=== PATIENT | male | born 1975 | race Caucasian/White ===

== ENCOUNTER 2017-08-14 20:08 | Emergency (ER) | payer MEDICAID, OTHER ==
[~2017-08-14] VITALS: Ht 177.8 cm; Wt 80.0 kg
[2017-08-14] MEDS ORDERED: acetaminophen 325mg tablet PO ONE (20:25)
[2017-08-14] MEDS ORDERED: normal saline 1000ML IV soln IV ONE (20:30)
[2017-08-14 21:00] LABS: PARTIAL THROMBOPLASTIN TIME 27 SECONDS (22-32); PROTHROMBIN TIME 10.8 SECONDS (9.0-12.0)
[2017-08-14 21:05] LABS: ALANINE AMINOTRANSFERASE 151 U/L (12-78); ALBUMIN 3.4 G/DL (3.4-5.0); ALKALINE PHOSPHATASE 117 IU/L (46-116); ANION GAP 7 (8-16); ASPARTATE AMINO TRANSFERASE 102 U/L (10-37); BILIRUBIN,TOTAL 0.5 MG/DL (0.1-1.0); BLOOD UREA NITROGEN 14 MG/DL (7-18); BUN/CREATININE RATIO 12.3 (5.4-32.0); CALCIUM 8.9 MG/DL (8.5-10.1); CHLORIDE 93 MMOL/L (99-107); CREATININE 1.14 MG/DL (0.60-1.10); GLUCOSE 115 MG/DL (70-104); MAGNESIUM 1.4 MG/DL (1.5-2.4); POTASSIUM 3.9 MMOL/L (3.5-5.1); SODIUM 128 MMOL/L (135-145); TOTAL CARBON DIOXIDE 27.9 MMOL/L (24-32); TOTAL PROTEIN 6.8 G/DL (6.4-8.2); eGFR 70 ML/MIN
[2017-08-14 21:09] LABS: BASOPHILS % (AUTO) 0.2 % (0-1); EOSINOPHILS % (AUTO) 0 % (0-6); HEMATOCRIT 48.3 % (42.0-52.0); HEMOGLOBIN 16.4 g/dl (14.0-17.9); LYMPHOCYTES # (AUTO) 1.3 X10'3 (1.1-4.8); LYMPHOCYTES % (AUTO) 18.6 % (21-51); MEAN CORPUSCULAR HEMOGLOBIN 29.2 PG (27.0-31.0); MEAN CORPUSCULAR HGB CONC 33.9 % (33.0-36.5); MEAN PLATELET VOLUME 8.4 FL (7.4-10.4); MONOCYTES # (AUTO) 0.7 X10'3 (0-0.9); MONOCYTES % (AUTO) 10.3 % (2-12); NEUTROPHILS # (AUTO) 4.8 X10'3 (1.8-7.7); NEUTROPHILS % (AUTO) 70.9 % (42-75); PLATELET COUNT 138 X10'3 (140-440); RED BLOOD COUNT 5.61 X10'6 (4.70-6.10); RED CELL DISTRIBUTION WIDTH 13.1 % (11.5-14.5); WHITE BLOOD COUNT 6.8 X10'3 (4.5-11.0)
[2017-08-14 21:26] LABS: CLARITY,URINE CLEAR (Clear); COLOR,URINE YELLOW (Yellow); GLUCOSE, URINE NEGATIVE (Neg); KETONES,URINE NEGATIVE (Neg); LEUKOCYTE ESTERASE ,URINE NEGATIVE (Neg); NITRITES, URINE NEGATIVE (Neg); OCCULT BLOOD,URINE NEGATIVE (Neg); PH,URINE 8.5 (4.8-8.0); PROTEIN,URINE 100 mg/dl (Neg)
[2017-08-14 21:47] LABS: UA COLLECTION TYPE URINAL
[2017-08-14 21:48] LABS: BACTERIA,URINE NONE SEEN /HPF (Neg); RBC,URINE NONE SEEN /HPF (0-2); SQUAMOUS EPITHELIAL CELL,UR NONE SEEN /LPF (FEW); WBC,URINE NONE SEEN /HPF (0-4)
[2017-08-14] MEDS ORDERED: ONDA8TAB9 PO (22:03)
[2017-08-14 22:19] VITALS: BP 123/68
== END 2017-08-14 22:22 | disposition home or self-care (01) ==
LOC: ER 20:09
DX: E87.1 Hypo-osmolality and hyponatremia (principal); E86.0 Dehydration; N28.9 Disorder of kidney and ureter, unspecified; R74.0 Nonspecific elevation of levels of transaminase and lactic acid dehydrogenase [LDH]; B34.9 Viral infection, unspecified; F17.200 Nicotine dependence, unspecified, uncomplicated; Z98.890 Other specified postprocedural states; Z79.899 Other long term (current) drug therapy
CPT/HCPCS: 36415; 71045; 80053; 81001; 83605; 83735; 84145; 85025; 85610; 85730; 87040; 93005; 96360; 99291; J7030

== ENCOUNTER 2018-04-22 17:24 | Emergency (ER) | payer MEDICAID, OTHER ==
[~2018-04-22] VITALS: Ht 177.8 cm; Wt 75.0 kg
[~2018-04-22 17:24] MED LIST: ONDA8TAB9 PO
[2018-04-22 17:36] VITALS: BP 136/93
--- NOTE | 2018-04-22 18:42 | NUR ---
ultrasound at bedside.
[2018-04-22 19:16] LABS: CLARITY,URINE CLEAR (Clear); COLOR,URINE YELLOW (Yellow); GLUCOSE, URINE NEGATIVE (Neg); KETONES,URINE NEGATIVE (Neg); LEUKOCYTE ESTERASE ,URINE NEGATIVE (Neg); NITRITES, URINE NEGATIVE (Neg); OCCULT BLOOD,URINE NEGATIVE (Neg); PROTEIN,URINE NEGATIVE (Neg); UROBILINOGEN,URINE 0.2 E.U/dL (0.2-1.0)
[2018-04-22 19:20] LABS: UA COLLECTION TYPE CLN CATCH MIDSTREAM
[2018-04-22] MEDS ORDERED: acetaminophen 325mg tablet PO ONE (19:20)
[2018-04-22] MEDS ORDERED: DOXYCYCLINE 100MG CAPSULE PO STA (19:23)
[2018-04-22] MEDS ORDERED: CefTRIAXone 250MG IM Kit w/LIDOcaine IM ONE (19:25)
[2018-04-22] MEDS ORDERED: DOXY100C43 PO (19:27)
== END 2018-04-22 19:55 | disposition home or self-care (01) ==
LOC: ER 17:24
DX: N50.812 Left testicular pain (principal); R10.32 Left lower quadrant pain; N53.12 Painful ejaculation; R39.198 Other difficulties with micturition; Z98.890 Other specified postprocedural states
CPT/HCPCS: 36415; 76870; 81003; 87491; 87591; 99284

== ENCOUNTER 2018-06-15 18:25 | Emergency (ER) | payer OTHER ==
[~2018-06-15] VITALS: Ht 177.8 cm; Wt 75.0 kg
[2018-06-15 18:39] VITALS: BP 127/89
[2018-06-15] MEDS ORDERED: HYDROcodone/acetaminophen 10/325mg tab PO ONE (20:35)
[2018-06-15] MEDS ORDERED: HYDR-4353 PO (21:32)
== END 2018-06-15 21:57 | disposition home or self-care (01) ==
LOC: ER 18:26
DX: S42.031A Displaced fracture of lateral end of right clavicle, initial encounter for closed fracture (principal); S40.211A Abrasion of right shoulder, initial encounter; S50.311A Abrasion of right elbow, initial encounter; M25.532 Pain in left wrist; Z79.899 Other long term (current) drug therapy; V29.9XXA Motorcycle rider (driver) (passenger) injured in unspecified traffic accident, initial encounter; Y93.I9 Activity, other involving external motion; Y92.410 Unspecified street and highway as the place of occurrence of the external cause; Y99.8 Other external cause status
CPT/HCPCS: 29125; 73000; 73120; 99283

== ENCOUNTER 2018-06-19 15:06 | Emergency (ER) | payer OTHER ==
[~2018-06-19] VITALS: Ht 177.8 cm; Wt 79.0 kg
[~2018-06-19 15:06] MED LIST changes: +HYDR-4353 PO
[2018-06-19 15:09] VITALS: BP 143/66
[2018-06-19] MEDS ORDERED: HYDR-4353 PO (16:37)
[2018-06-19] MEDS ORDERED: HYDROcodone/acetaminophen 10/325mg tab PO ONE (17:00)
== END 2018-06-19 17:03 | disposition home or self-care (01) ==
LOC: ER 15:07
DX: S42.031D Displaced fracture of lateral end of right clavicle, subsequent encounter for fracture with routine healing (principal); S40.211D Abrasion of right shoulder, subsequent encounter; S50.311D Abrasion of right elbow, subsequent encounter; Z98.890 Other specified postprocedural states; Z79.899 Other long term (current) drug therapy; V29.9XXD Motorcycle rider (driver) (passenger) injured in unspecified traffic accident, subsequent encounter
CPT/HCPCS: 73070; 99283

== ENCOUNTER → 2018-07-26 | Outpatient (CLI) | payer MEDICAID ==
[~2018-07-26] MED LIST changes: -HYDR-4353 PO
[2018-07-26 12:45] VITALS: BP 138/89
[2018-07-26 12:46] VITALS: BP 138/89
== END | disposition home or self-care (01) ==
LOC: ORTHO 11:49
PROVIDERS: ATTEND Orthopaedic Surgery
DX: S42.021D Displaced fracture of shaft of right clavicle, subsequent encounter for fracture with routine healing (principal); F17.200 Nicotine dependence, unspecified, uncomplicated; X58.XXXD Exposure to other specified factors, subsequent encounter
CPT/HCPCS: 73000; 99213

== ENCOUNTER 2018-08-24 11:42 | Emergency (ER) | payer MEDICAID ==
[~2018-08-24] VITALS: Ht 177.8 cm; Wt 71.0 kg
[2018-08-24 11:50] VITALS: BP 126/77
--- NOTE | 2018-08-24 12:00 | NUR ---
called poison control spoke to hu .patient needs to be monitored for coughing spells,nausea,vomiting and respiratory symptoms.patient sating 95-98% ra with some dizziness.CXR recommended if + respiratory symptoms due to risks of aspiration pna.
--- NOTE | 2018-08-24 13:21 | NUR ---
PT NIL. PT CALLED AND PHONE # HAS RESTRICTIONS AND CAN NOT ANSWER INCOMING CALLS. Addendum: 08/24/18 at 1327 by [facility] ER CALLED, PT HAS NOT CHECKED INTO ER
== END 2018-08-24 14:10 | disposition left against medical advice (07) ==
LOC: ER 11:42
DX: T65.6X1A Toxic effect of paints and dyes, not elsewhere classified, accidental (unintentional), initial encounter (principal); R42 Dizziness and giddiness; Z53.21 Procedure and treatment not carried out due to patient leaving prior to being seen by health care provider; Y92.89 Other specified places as the place of occurrence of the external cause

== ENCOUNTER 2018-11-27 02:17 | Emergency (ER) | payer MEDICAID ==
[~2018-11-27] VITALS: Ht 177.8 cm; Wt 60.9 kg
[2018-11-27 02:22] VITALS: BP 129/89
[2018-11-27 03:21] LABS: CLARITY,URINE CLEAR (Clear); COLOR,URINE YELLOW (Yellow); GLUCOSE, URINE NEGATIVE (Neg); KETONES,URINE NEGATIVE (Neg); LEUKOCYTE ESTERASE ,URINE NEGATIVE (Neg); NITRITES, URINE NEGATIVE (Neg); OCCULT BLOOD,URINE NEGATIVE (Neg); PH,URINE 5.5 (4.8-8.0); PROTEIN,URINE NEGATIVE (Neg); UROBILINOGEN,URINE 0.2 E.U/dL (0.2-1.0)
[2018-11-27 03:26] LABS: UA COLLECTION TYPE CLN CATCH MIDSTREAM
[2018-11-27] MEDS ORDERED: HYDR-3965 PO (06:33)
[2018-11-27] MEDS ORDERED: ketorolac trometh inj. 60 MG/2 ML VIAL IM ONE (06:35)
== END 2018-11-27 07:02 | disposition home or self-care (01) ==
LOC: ER 02:18
DX: N50.812 Left testicular pain (principal); N50.811 Right testicular pain; Z56.0 Unemployment, unspecified; Z98.890 Other specified postprocedural states; Z79.899 Other long term (current) drug therapy
CPT/HCPCS: 81003; 96372; 99283; J1885

== ENCOUNTER 2019-08-29 21:48 | Emergency (ER) | payer MEDICAID ==
[~2019-08-29] VITALS: Ht 177.8 cm; Wt 75.0 kg
[2019-08-29] MEDS ORDERED: cephalexin 250mg capsule PO ONE (23:25)
[2019-08-29] MEDS ORDERED: ibuprofen tablet 400 MG TABLET PO ONE (23:25)
[2019-08-29] MEDS ORDERED: acetaminophen 325mg tablet PO ONE (23:25)
[2019-08-29] MEDS ORDERED: CEPH250T PO (23:44)
[2019-08-29] MEDS ORDERED: IBUP-1984 PO (23:44)
[2019-08-29] MEDS ORDERED: LIDO700A32 TOP (23:44)
[2019-08-30 00:17] VITALS: BP 124/77
== END 2019-08-30 00:19 | disposition home or self-care (01) ==
LOC: ER 21:49
DX: S20.211A Contusion of right front wall of thorax, initial encounter (principal); R07.81 Pleurodynia; R05 Cough; R53.1 Weakness; Z79.2 Long term (current) use of antibiotics; Z79.899 Other long term (current) drug therapy; X58.XXXA Exposure to other specified factors, initial encounter; Y93.89 Activity, other specified; Y92.89 Other specified places as the place of occurrence of the external cause; Y99.8 Other external cause status
CPT/HCPCS: 71101; 99284

== ENCOUNTER 2020-09-13 18:14 | Emergency (ER) | payer MEDICAID ==
[~2020-09-13] VITALS: Ht 175.3 cm; Wt 88.6 kg
[~2020-09-13 18:14] MED LIST changes: +LIDO700A32 TOP
[2020-09-13] MEDS ORDERED: normal saline 1000ml 1,000 ML IV ONE (19:40)
[2020-09-13 21:29] VITALS: BP 142/100
== END 2020-09-13 21:45 | disposition home or self-care (01) ==
LOC: ER 18:15
DX: T67.5XXA Heat exhaustion, unspecified, initial encounter (principal); E86.0 Dehydration; R41.0 Disorientation, unspecified; F15.90 Other stimulant use, unspecified, uncomplicated; Z98.890 Other specified postprocedural states; Z72.89 Other problems related to lifestyle; Z60.2 Problems related to living alone; Z56.0 Unemployment, unspecified; Z79.899 Other long term (current) drug therapy; X30.XXXA Exposure to excessive natural heat, initial encounter; Y93.89 Activity, other specified; Y92.89 Other specified places as the place of occurrence of the external cause; Y99.8 Other external cause status
CPT/HCPCS: 82948; 96360; 96361; 99283; J7030